=== PATIENT | female | born 1995 | race Caucasian/White ===

== ENCOUNTER 2024-02-04 15:20 | Outpatient (REF) | payer OTHER, SELFPAY | END 2024-02-04 15:21 | disposition home or self-care (01) | LOC: LAB 15:20 | PROVIDERS: Visit Provider Surgery | DX: L98.9 Disorder of the skin and subcutaneous tissue, unspecified (principal) | CPT/HCPCS: 88305 ==

== ENCOUNTER 2024-06-07 15:41 | Outpatient (OUT) | payer OTHER, SELFPAY ==
[2024-06-09 05:08] LABS: Hepatitis B Surf Ab Quant 73.7 mIU/mL (Immunity>10); Measles Antibodies, IgG 53.2 AU/mL (Immune >16.4); Rubella Antibodies, IgG 2.83 index (Immune >0.99); Varicella-Zoster V Ab, IgG Reactive (Non Reactive)
[2024-06-10 12:09] LABS: QuantiFERON-TB Gold Plus Negative (Negative)
== END 2024-06-07 15:42 | disposition home or self-care (01) ==
PROVIDERS: PCP Family Medicine; Visit Provider Family Medicine
DX: Z00.00 Encounter for general adult medical examination without abnormal findings (principal)
CPT/HCPCS: 36415; 86317; 86480; 86615; 86735; 86762; 86765; 86787

== ENCOUNTER 2024-11-25 08:12 | Outpatient (OUT) | payer OTHER, SELFPAY ==
--- NOTE | 2024-11-25 08:15 | MR_ITS ---
The [address] [address] Patient Name: RUDY HARKINS MRN: [id number] date: 1995 Sex: F Assigned Patient Location: MRI Current Patient Location: MRI Accession/Order Number: [id number] Exam Date: 11/25/2024 09:16 Report Date: 11/25/2024 09:18 At the request of: DIONNA MAE MD Procedure: MR head/brain wo con EXAMINATION: MRI OF THE BRAIN WITHOUT CONTRAST CLINICAL HISTORY: Headache for 1+ months COMPARISON: None TECHNIQUE: Multiecho, multiplanar imaging of the brain was performed without enhancement. FINDINGS: No evidence of restriction diffusion is an diffusion-weighted imaging. No evidence of blood products are seen on T2 Star imaging. White matter signal is normal on T2 and T2 FLAIR images. Posterior fossa appears unremarkable. Intraorbital contents appear unremarkable. Right maxillary sinus disease. MR/MR head/brain wo con IMPRESSION: NO ACUTE INTRACRANIAL ABNORMALITY. RIGHT MAXILLARY SINUS DISEASE. Impression dictated by: Gregorio Anaya Jr., D.O. 11/25/2024 9:18 AM Dictation Location: [place] [address] Electronically authenticated by: [id number] Y Date: 11/25/2024 09:18
== END 2024-11-25 08:13 | disposition home or self-care (01) ==
LOC: MRI 08:12
PROVIDERS: PCP Family Medicine; Visit Provider Family Medicine
DX: G43.909 Migraine, unspecified, not intractable, without status migrainosus (principal); J32.0 Chronic maxillary sinusitis
CPT/HCPCS: 70551